=== PATIENT | female | born 2000 | race American Indian/Alaskan Native ===

== ENCOUNTER 2019-06-04 09:18 | Emergency (ER) | payer OTHER ==
[2019-06-04] MEDS ORDERED: KETOROLAC 30 MG/1 ML INJ IV ONE (10:32)
[2019-06-04] MEDS ORDERED: FAMOTIDINE 20 MG/2 ML INJ IV ONE (10:32)
[2019-06-04] MEDS ORDERED: SODIUM CHLORIDE 0.9% 1000 ML 1,000 ML IV ONE (10:32)
[2019-06-04] MEDS ORDERED: METOCLOPRAMIDE 10 MG/2 ML INJ IV ONE (10:32)
--- NOTE | 2019-06-04 10:41 | Emergency Department Report ---
ED Abdominal Pain HPI - General Chief Complaint: Abdominal Pain Stated Complaint: N/V ABD PAIN Time Seen by Provider: 06/04/19 10:08 Source: patient, EMS Mode of arrival: Stretcher Limitations: No Limitations - History of Present Illness Initial Comments: This is a 18-year-old female presents with generalized abdominal pain with nausea and vomiting worsening over the past week. Patient stated that these symptoms initially started about a year ago with just 30 minute episodes of abdominal pain. Patient states that she was told she was lactose intolerant and stopped eating lactose. Patient states that this did not help her symptoms got worse. Patient states that symptoms are daily and is worsening with any type of food. She also exhibiting some nausea vomiting. Patient stated that she was seen at urgent care yesterday and was given until, antibiotics for UTI Pepcid and Zofran. Patient states she took Tums and the patient this morning which did not relieve her abdominal pain. She denies dysuria, vaginal bleeding. She states last menstrual period was 05/27/2019. Patient stated that she was given the dye reel operator helper appointment for 06/17/2019 MD Complaint: abdominal pain - Related Data Allergies Allergy/AdvReac Type Severity Reaction Status Date / Time No Known Allergies Allergy Unverified 06/04/19 09:30 ED Review of Systems ROS: Stated complaint: N/V ABD PAIN Other details as noted in HPI Comment: All other systems reviewed and negative ED Past Medical Hx - Past Medical History Additional medical history: gastritis - Surgical History Past Surgical History?: No - Social History Smoking Status: Never Smoker Substance Use Type: None ED Physical Exam - General Limitations: No Limitations General appearance: alert, in no apparent distress - Head Head exam: Present: atraumatic, normocephalic - Eye Eye exam: Present: normal appearance - ENT ENT exam: Present: mucous membranes moist - Neck Neck exam: Present: normal inspection - Respiratory Respiratory exam: Present: normal lung sounds bilaterally. Absent: respiratory distress - Cardiovascular Cardiovascular Exam: Present: regular rate, normal rhythm. Absent: systolic murmur, diastolic murmur, rubs, gallop - GI/Abdominal GI/Abdominal exam: Present: soft, tenderness, normal bowel sounds. Absent: guarding, rebound, mass - Expanded GI/Abdominal Exam Expanded GI/Abdominal exam: Absent: psoas sign, Perez's sign - Extremities Exam Extremities exam: Present: normal inspection - Back Exam Back exam: Present: normal inspection - Neurological Exam Neurological exam: Present: alert, oriented X3 - Psychiatric Psychiatric exam: Present: normal affect, normal mood - Skin Skin exam: Present: warm, dry, intact, normal color. Absent: rash ED Course Vital Signs 06/04/19 09:28 Temperature 97.3 F L Pulse Rate 76 Respiratory 16 Rate Blood Pressure 123/79 O2 Sat by Pulse 95 Oximetry ED Medical Decision Making - Lab Data Result diagrams: 06/04/19 11:25 Laboratory Last Values WBC 3.2 K/mm3 (4.5-11.0) L 06/04/19 11:25 RBC 4.57 M/mm3 (3.65-5.03) 06/04/19 11:25 Hgb 9.9 gm/dl (10.1-14.3) L 06/04/19 11:25 Hct 32.1 % (30.3-42.9) 06/04/19 11:25 MCV 70 fl (79-97) L 06/04/19 11:25 MCH 22 pg (28-32) L 06/04/19 11:25 MCHC 31 % (30-34) 06/04/19 11:25 RDW 19.2 % (13.2-15.2) H 06/04/19 11:25 Plt Count 272 K/mm3 (140-440) 06/04/19 11:25 Lymph % (Auto) 40.5 % (13.4-35.0) H 06/04/19 11:25 [place] % (Auto) 8.8 % (0.0-7.3) H 06/04/19 11:25 Eos % (Auto) 0.8 % (0.0-4.3) 06/04/19 11:25 Baso % (Auto) 0.9 % (0.0-1.8) 06/04/19 11:25 Lymph # 1.3 K/mm3 (1.2-5.4) 06/04/19 11:25 [place] # 0.3 K/mm3 (0.0-0.8) 06/04/19 11:25 Eos # 0.0 K/mm3 (0.0-0.4) 06/04/19 11:25 Baso # 0.0 K/mm3 (0.0-0.1) 06/04/19 11:25 Seg Neutrophils % 49.0 % (40.0-70.0) 06/04/19 11:25 Seg Neutrophils # 1.6 K/mm3 (1.8-7.7) L 06/04/19 11:25 Amylase 72 units/L (27-131) 06/04/19 11:25 Lipase 29 units/L (13-60) 06/04/19 11:25 HCG, Qual Negative (Negative) 06/04/19 11:25 Laboratory Tests 06/04/19 06/04/19 06/04/19 11:25 11:25 11:25 WBC 3.2 L RBC 4.57 Hgb 9.9 L Hct 32.1 MCV 70 L MCH 22 L MCHC 31 RDW 19.2 H Plt Count 272 Lymph % (Auto) 40.5 H [place] % (Auto) 8.8 H Eos % (Auto) 0.8 Baso % (Auto) 0.9 Lymph # 1.3 [place] # 0.3 Eos # 0.0 Baso # 0.0 Seg Neutrophils % 49.0 Seg Neutrophils # 1.6 L Amylase 72 Lipase 29 HCG, Qual 06/04/19 11:25 WBC RBC Hgb Hct MCV MCH MCHC RDW Plt Count Lymph % (Auto) [place] % (Auto) Eos % (Auto) Baso % (Auto) Lymph # [place] # Eos # Baso # Seg Neutrophils % Seg Neutrophils # Amylase Lipase HCG, Qual Negative - Radiology Data Radiology results: report reviewed, image reviewed CT abdomen pelvis wo con INDICATION: Abdominal Pain. TECHNIQUE: All CT scans at this location are performed using the following dose modulation technique: Automated exposure control. Helical slices were obtained through the abdomen and pelvis. No contrast is administered. COMPARISON: None available. FINDINGS: Abdomen: Lung bases are clear. Liver, spleen, pancreas, adrenal glands, and kidneys show no acute abnormality. The aorta is normal in diameter. There is no adenopathy identified. There are no renal or ureteral calculi. There is no hydronephrosis. Pelvis: The appendix is unremarkable. There is no inflammatory change. There are no abnormal fluid collections. There is a small amount of free fluid in the dependent portion of the pelvis is likely physiologic. On review of bone windows, no acute osseous abnormalities are seen. IMPRESSION: 1. There is no obstruction, inflammation, or free air. There are no abnormal fluid collections. There are no renal or ureteral calculi. There is no hydronephrosis. Signer Name: Eloy Patton MD Signed: 06/04/2019 1:47 PM Workstation Name: [id number] Transcribed By: DAISHA Dictated By: Eloy Patton MD Electronically Authenticated By: Eloy Patton MD Signed Date/Time: 06/04/19 1347 - Medical Decision Making 18-year-old female who presents to ED with abdominal pain most likely secondary to IBS. All labs were completed in the ER, all labs are within normal limits, CT scan shows no acute abdomen or any obstruction or inflammation. Patient received 1 L of fluids Pepcid Toradol and Zofran in the ED. Patient is sleeping comfortably in the ED bed. Patient received ciprofloxacin for UTI yesterday which she is currently taking. Patient also received Bentyl, Pepcid and Zofran from her visits at urgent care yesterday. I discussed the patient's mother to ensure that she continues taking the medication as prescribed. Discussed with patient said keep her appointment with the dye reel operator helper on the . Discussed all findings with the mother and the patient. Vital signs are normal, patient is in no acute distress. I discussed all findings with the mother. Critical care attestation.: If time is entered above; I have spent that time in minutes in the direct care of this critically ill patient, excluding procedure time. ED Disposition Clinical Impression: Abdominal pain, IBS (irritable bowel syndrome) Disposition: DC-01 TO HOME OR SELFCARE Is pt being admited?: No Does the pt Need Aspirin: No Condition: Stable Instructions: Irritable Bowel Syndrome (ED), Abdominal Pain (ED) Additional Instructions: Make sure to follow up with the GI as discussed. Continue to Take all your medications as you've been prescribed. I urgent care doctor which is Cipro, Pepcid, Zofran and bentyl If you have any worsening symptoms or develop new symptoms please return to ED immediately. Referrals: [facility] [Provider Group] - 3-5 Days [facility] [Provider Group] - 3-5 Days Forms: Accompanied Note, Work/School Release Form(ED) Time of Disposition: 14:12
[2019-06-04 11:47] LABS: Basophils % (Auto) 0.9 % (0.0-1.8); Eosinophils % (Auto) 0.8 % (0.0-4.3); Hematocrit 32.1 % (30.3-42.9); Hemoglobin 9.9 gm/dl (10.1-14.3); Lymphocytes # (Auto) 1.3 K/mm3 (1.2-5.4); Lymphocytes % (Auto) 40.5 % (13.4-35.0); Mean Corpuscular HGB Conc 31 % (30-34); Mean Corpuscular Volume 70 fl (79-97); Monocytes # (Auto) 0.3 K/mm3 (0.0-0.8); Monocytes % (Auto) 8.8 % (0.0-7.3); Platelet Count 272 K/mm3 (140-440); Red Blood Count 4.57 M/mm3 (3.65-5.03); Red Cell Distribution Width 19.2 % (13.2-15.2)
--- NOTE | 2019-06-04 13:51 | Cat Scan Report ---
CT abdomen pelvis wo con INDICATION: Abdominal Pain. TECHNIQUE: All CT scans at this location are performed using the following dose modulation technique: Automated exposure control. Helical slices were obtained through the abdomen and pelvis. No contrast is adminis tered. COMPARISON: None available. FINDINGS: Abdomen: Lung bases are clear. Liver, spleen, pancreas, adrenal glands, and kidneys show no acute abn ormality. The aorta is normal in diameter. There is no adenopathy identified. There are no renal or ureteral calculi. There is no hydronephrosis. Pelvis: The appendix is unremarkable. There is no inflammatory change. There are no abnormal fluid co llections. There is a small amount of free fluid in the dependent portion of the pelvis is likely phy siologic. On review of bone windows, no acute osseous abnormalities are seen. IMPRESSION: 1. There is no obstruction, inflammation, or free air. There are no abnormal fluid collections. There are no renal or ureteral calculi. There is no hydronephrosis. Signer Name: Eloy Patton MD Signed: 06/04/2019 1:47 PM Workstation Name: [id number]
[2019-06-04 14:44] VITALS: BP 120/74
== END 2019-06-04 14:43 | disposition home or self-care (01) ==
LOC: ED 09:18
DX: K58.9 Irritable bowel syndrome, unspecified (principal)
CPT/HCPCS: 36415; 74176; 82150; 83690; 84703; 85025; 96361; 96374; 96375; 99284; J1885; J2765; J7030